=== PATIENT | female | born 1945 | race Caucasian/White ===

== ENCOUNTER 2022-05-15 23:27 | Inpatient (IN) | payer SELFPAY ==
[~2022-05-15] VITALS: Ht 152.4 cm; Wt 61.2 kg
[2022-05-15 23:35] VITALS: BP_SYST 121
[2022-05-16] MEDS ORDERED: PROCHLORPERAZINE EDISYLATE 10 MG/2 ML VIAL IVP ONE
[2022-05-16] MEDS ORDERED: NACL 0.9% 1,000 ML IV ONE
[2022-05-16] MEDS ORDERED: MORPHINE 2 MG/ML INJ. SYRINGE IVP ONE
[2022-05-16 00:43] LABS: BILIRUBIN,URINE NEGATIVE (NEGATIVE); BLOOD, URINE TRACE (NEGATIVE); CLARITY/URINE CLEAR (CLEAR); COLOR,URINE YELLOW (YELLOW); GLUCOSE,URINE NEGATIVE (NEGATIVE); KETONES,URINE NEGATIVE (NEGATIVE); LEUKOCYTE ESTERASE ,URINE TRACE (NEGATIVE); NITRITE, URINE NEGATIVE (NEGATIVE); PH,URINE 6.5 (5.0-8.0); PROTEIN URINE NEGATIVE (NEGATIVE); UROBILINOGEN,URINE 0.2 (0.2-1.0)
[2022-05-16 01:31] LABS: BACTERIA,URINE RARE /HPF (None Seen); MUCUS,URINE None Seen /LPF (None Seen); RBC,URINE 0-3 /HPF (0-3); WBC,URINE 0-3 /HPF (0-3)
[2022-05-16 01:53] LABS: WHITE BLOOD COUNT (AUTO) 6.2 K/uL (4.8-10.8)
[2022-05-16 01:54] LABS: BASOPHILS % (AUTO) 0.7 % (0.0-2.0); EOSINOPHILS % (AUTO) 3.7 % (0.0-4.0); HEMATOCRIT 30.7 % (36-48); HEMOGLOBIN 10.3 g/dL (12.0-16.0); LYMPHOCYTES % (AUTO) 30.2 % (20.5-51.5); MEAN CORPUSCULAR HEMOGLOBIN 30 pg (27-31); MEAN CORPUSCULAR HGB CONC 34 % (32-36); MEAN CORPUSCULAR VOLUME 89 fL (79.0-98.0); MONOCYTES % (AUTO) 8.6 % (1.7-9.3); NEUTROPHILS % (AUTO) 56.8 % (40.0-70.0); PLATELET COUNT (AUTO) 169 K/uL (130-430); RED BLOOD CELL COUNT(AUTO) 3.45 MIL/uL (4.2-6.2); RED CELL DISTRIBUTION WIDTH 14.2 % (9.0-15.0)
[2022-05-16 01:55] LABS: EOSINOPHILS # (AUTO) 0.2 K/uL (0.0-0.4); LYMPHOCYTES # (AUTO) 1.9 K/uL (1.0-5.5); MONOCYTES # (AUTO) 0.5 K/uL (0.0-1.0); NEUTROPHILS # (AUTO) 3.5 K/uL (1.8-7.7)
[2022-05-16 04:03] LABS: ANION GAP 4 (5-15); POTASSIUM 3.1 mmol/L (3.5-5.1)
[2022-05-16 04:04] LABS: CALCIUM 7.3 mg/dL (8.4-11.0); CREATININE 0.46 mg/dL (0.55-1.30); GLUCOSE 70 mg/dL (70-99); UREA NITROGEN, BLOOD 11 mg/dL (8-21)
[2022-05-16 04:05] LABS: ASPARTATE AMINOTRANSFERASE 19 U/L (10-37); TOTAL BILIRUBIN 0.3 mg/dL (0.0-1.0)
[2022-05-16 04:08] LABS: ALBUMIN 2.5 g/dL (3.4-4.8)
[2022-05-16 04:09] LABS: SODIUM SERUM 109 mmol/L (136-145)
[2022-05-16 04:10] LABS: CHLORIDE 82 mmol/L (98-107)
[2022-05-16] MEDS ORDERED: SODIUM CHLORIDE 3% *HI-ALERT* 500 ML IV ONE (04:15)
[2022-05-16] MEDS: NACL 0.9% 1,000 ML IV SCH ×2 (04:40→21:32)
[2022-05-16 04:50] LABS: ALANINE AMINOTRANSFERASE 12 U/L (12-78)
[2022-05-16 04:51] LABS: LIPASE 149 U/L (73-393)
[2022-05-16] MEDS: DOCUSATE SODIUM 250 MG CAPSULE PO SCH ×2 (09:00→21:00)
[2022-05-16] MEDS ORDERED: DOCUSATE SODIUM 100 MG CAPSULE PO PRN (09:00)
[2022-05-16] MEDS: HEPARIN SODIUM,PORCINE 5,000 UNITS/ML VIAL SUBCUT SCH ×2 (09:00→21:31)
[2022-05-16] MEDS ORDERED: NALOXONE HCL 0.4 MG/ML AMP (NARCAN) IVP PRN ×2 (09:00)
[2022-05-16] MEDS ORDERED: ACETAMINOPHEN 325 MG TABLET PO PRN (09:00)
[2022-05-16] MEDS ORDERED: BISACODYL 5 MG TABLET.DR (DULCOLAX) PO ONE (09:00)
[2022-05-16] MEDS ORDERED: MAGNESIUM SULFATE 50 ML IV PRN (09:00)
[2022-05-16] MEDS ORDERED: ONDANSETRON HCL 4 MG/2 ML VIAL IVP PRN (09:00)
[2022-05-16] MEDS ORDERED: ZOLPIDEM TARTRATE 5 MG TABLET PO PRN (09:00)
[2022-05-16] MEDS ORDERED: POTASSIUM CHLORIDE 20 MEQ TAB.PRT.SR PO PRN (09:00)
[2022-05-16] MEDS ORDERED: MORPHINE 2 MG/ML INJ. SYRINGE IVP PRN ×2 (09:00)
[2022-05-16] MEDS ORDERED: MUPIROCIN 2% TOPICAL OINTMENT 22 GM NS PRN (09:00)
[2022-05-16] MEDS ORDERED: LORazepam 1 MG TABLET PO PRN (09:15)
[2022-05-16] MEDS ORDERED: cefTRIAXone 1 GM IVPB PREMIX 50 ML IV ONE (10:00)
[2022-05-16 14:32] LABS: ANION GAP 7 (5-15); CALCIUM 8.7 mg/dL (8.4-11.0); CHLORIDE 105 mmol/L (98-107); CREATININE 0.53 mg/dL (0.55-1.30); GLUCOSE 117 mg/dL (70-99); POTASSIUM 3.9 mmol/L (3.5-5.1); SODIUM SERUM 139 mmol/L (136-145); UREA NITROGEN, BLOOD 12 mg/dL (8-21)
[2022-05-16 16:50] VITALS: BP_SYST 124
[2022-05-16 17:13] VITALS: BP_SYST 125
[2022-05-16 19:30] VITALS: BP_SYST 136
[2022-05-16 23:56] VITALS: BP_SYST 118
[2022-05-17 08:32] LABS: ANION GAP 5 (5-15); CALCIUM 8.7 mg/dL (8.4-11.0); CHLORIDE 106 mmol/L (98-107); CREATININE 0.51 mg/dL (0.55-1.30); GLUCOSE 84 mg/dL (70-99); POTASSIUM 3.7 mmol/L (3.5-5.1); SODIUM SERUM 140 mmol/L (136-145); UREA NITROGEN, BLOOD 14 mg/dL (8-21)
[2022-05-17] MEDS: cefTRIAXone 1 GM in D5W 50 ML IV SCH (10:18)
[2022-05-17] MEDS: DOCUSATE SODIUM 250 MG CAPSULE PO SCH ×2 (10:20→21:27)
[2022-05-17] MEDS: HEPARIN SODIUM,PORCINE 5,000 UNITS/ML VIAL SUBCUT SCH ×2 (10:20→21:33)
[2022-05-17 12:07] LABS: BASOPHILS % (AUTO) 0.6 % (0.0-2.0); EOSINOPHILS # (AUTO) 0.2 K/uL (0.0-0.4); EOSINOPHILS % (AUTO) 4.2 % (0.0-4.0); HEMATOCRIT 31.9 % (36-48); HEMOGLOBIN 10.6 g/dL (12.0-16.0); LYMPHOCYTES # (AUTO) 1.4 K/uL (1.0-5.5); MEAN CORPUSCULAR HEMOGLOBIN 29 pg (27-31); MEAN CORPUSCULAR HGB CONC 33 % (32-36); MEAN CORPUSCULAR VOLUME 88 fL (79.0-98.0); MONOCYTES # (AUTO) 0.4 K/uL (0.0-1.0); MONOCYTES % (AUTO) 8.7 % (1.7-9.3); NEUTROPHILS # (AUTO) 2.4 K/uL (1.8-7.7); NEUTROPHILS % (AUTO) 55.5 % (40.0-70.0); PLATELET COUNT (AUTO) 152 K/uL (130-430); RED BLOOD CELL COUNT(AUTO) 3.62 MIL/uL (4.2-6.2); RED CELL DISTRIBUTION WIDTH 14.4 % (9.0-15.0); WHITE BLOOD COUNT (AUTO) 4.4 K/uL (4.8-10.8)
[2022-05-17 20:10] VITALS: BP_SYST 137
[2022-05-17] MEDS: NACL 0.9% 1,000 ML IV SCH (21:28)
[2022-05-17] MEDS ORDERED: KETOROLAC TROMETHAMINE 15 MG VIAL IVP PRN (22:00)
[2022-05-18 00:34] VITALS: BP_SYST 115
[2022-05-18 07:00] VITALS: BP_SYST 124
[2022-05-18 08:16] LABS: ANION GAP 4 (5-15); CALCIUM 8.6 mg/dL (8.4-11.0); CHLORIDE 106 mmol/L (98-107); CREATININE 0.59 mg/dL (0.55-1.30); GLUCOSE 78 mg/dL (70-99); POTASSIUM 3.6 mmol/L (3.5-5.1); SODIUM SERUM 139 mmol/L (136-145); UREA NITROGEN, BLOOD 14 mg/dL (8-21)
[2022-05-18] MEDS: cefTRIAXone 1 GM in D5W 50 ML IV SCH (09:00)
[2022-05-18] MEDS ORDERED: MINERAL OIL 133 ML ENEMA RC ONE (10:15)
[2022-05-18] MEDS: DOCUSATE SODIUM 250 MG CAPSULE PO SCH (13:08)
[2022-05-18] MEDS: HEPARIN SODIUM,PORCINE 5,000 UNITS/ML VIAL SUBCUT SCH (13:10)
[2022-05-18 14:39] LABS: BASOPHILS # (AUTO) 0.1 K/uL (0.0-0.2); BASOPHILS % (AUTO) 1.3 % (0.0-2.0); EOSINOPHILS # (AUTO) 0.2 K/uL (0.0-0.4); EOSINOPHILS % (AUTO) 4.4 % (0.0-4.0); HEMATOCRIT 30.5 % (36-48); HEMOGLOBIN 10.2 g/dL (12.0-16.0); LYMPHOCYTES # (AUTO) 1.4 K/uL (1.0-5.5); LYMPHOCYTES % (AUTO) 35.5 % (20.5-51.5); MEAN CORPUSCULAR HEMOGLOBIN 30 pg (27-31); MEAN CORPUSCULAR HGB CONC 33 % (32-36); MEAN CORPUSCULAR VOLUME 89 fL (79.0-98.0); MONOCYTES # (AUTO) 0.4 K/uL (0.0-1.0); MONOCYTES % (AUTO) 10.4 % (1.7-9.3); NEUTROPHILS # (AUTO) 1.9 K/uL (1.8-7.7); NEUTROPHILS % (AUTO) 48.4 % (40.0-70.0); PLATELET COUNT (AUTO) 151 K/uL (130-430); RED BLOOD CELL COUNT(AUTO) 3.44 MIL/uL (4.2-6.2); RED CELL DISTRIBUTION WIDTH 14.6 % (9.0-15.0)
[2022-05-18] MEDS ORDERED: CEPH250C PO (15:11)
[2022-05-18] MEDS ORDERED: DOCU-144 PO (15:11)
[2022-05-18 17:46] VITALS: BP_SYST 124
[2022-05-18 18:15] VITALS: BP_SYST 135
[2022-05-18 20:00] VITALS: BP_SYST 120
== END 2022-05-18 21:10 | disposition home or self-care (01) | DRG 690 ==
LOC: SED 23:27 → STU 05-16 04:23
PROVIDERS: ADMIT General Practice; ATTEND General Practice
DX: N39.0 Urinary tract infection, site not specified (principal); E87.1 Hypo-osmolality and hyponatremia; E87.8 Other disorders of electrolyte and fluid balance, not elsewhere classified; D63.8 Anemia in other chronic diseases classified elsewhere; Z20.822 Contact with and (suspected) exposure to COVID-19; Z90.710 Acquired absence of both cervix and uterus
CPT/HCPCS: 36415; 74018; 76376; 80048; 80053; 81000; 83036; 83690; 83735; 85025; 96361; 96374; 96375; 99285; G0378; J0696; J0780; J1644; J1885; J2270; J3490; J7060